=== PATIENT | male | born 1975 | race Caucasian/White ===

== ENCOUNTER 2025-04-17 01:40 | Emergency (ER) | payer SELFPAY ==
[2025-04-17 01:50] VITALS: BP 156/86; PULSE 77; RESP 18; TEMP 36.2; O2SAT 99
--- NOTE | 2025-04-17 01:56 | ED.MALEGU ---
HPI - Male Genitourinary General Chief complaint: Urogenital-Male Stated complaint: concerns of uti Time Seen by Provider: 04/17/25 01:56 Source: patient Mode of arrival: ambulatory Limitations: no limitations History of Present Illness HPI Narrative: Patient noticed green penile discharge few hours prior to arrival to the emergency room. Patient reported frequent urination over the last 24 hours, new sexual partner 1 month ago He denies any fever, chills, nausea, vomiting or history of STD. Patient is telling me that his new girlfriend denied any history of STD or any symptoms of it Related Data Allergies Allergy/AdvReac Type Severity Reaction Status Date / Time No Known Allergies Allergy Verified 04/17/25 01:44 Review of Systems Review of Systems: All systems reviewed & are unremarkable except as noted in HPI and below Exam Narrative: General appearance: Well-developed, well-nourished Skin: Normal color Head: Normocephalic, nontraumatic Eyes: Clear conjunctiva ENT: Oropharynx normal, ears normal, nose normal Neck: Supple, nontender Chest and respiratory: Airway patent, no respiratory distress, no accessory muscle use Heart: Regular rate/rhythm Abdomen: Soft, nontender, no organomegaly, quiet bowel sounds Musculoskeletal: Normal range of motion, nontender back Neurologic: Alert and oriented ?3, HEALTH SERVICES DIRECTOR is normal as tested, no gross motor deficit Course Vital Signs Vital signs: Vital Signs Temperature 36.2 C L 04/17/25 01:50 Pulse Rate 77 04/17/25 01:50 Respiratory Rate 18 04/17/25 01:50 Blood Pressure 156/86 H 04/17/25 01:50 Pulse Oximetry 99 04/17/25 01:50 Oxygen Delivery Room Air 04/17/25 01:50 Temperature 36.2 C L 04/17/25 01:50 Pulse Rate 77 04/17/25 01:50 Respiratory Rate 18 04/17/25 01:50 Blood Pressure 156/86 H 04/17/25 01:50 Pulse Oximetry 99 04/17/25 01:50 Oxygen Delivery Room Air 04/17/25 01:50 MDM MDM Narrative Medical decision making narrative: Differential diagnosis urinary tract infection, and/or STD The STD test is send out Urinalysis showed evidence of infection In the ED patient received have g of Rocephin IM, 1 g of azithromycin p.o. to cover possible GC chlamydia Discharged on Cipro 500 b.i.d. for 10 days for urinary tract infection Differential Diagnosis Differential Diagnosis: As above Lab Data Labs: Lab Results 04/17/25 04/17/25 Range/Units 02:02 02:14 Urine Color Yellow (Yellow) Urine Appearance Clear (Clear) Urine pH 6.0 (5.0-8.0) Ur Specific [place] 1.025 H (1.010-1.020) Urine Protein 1+ H (Negative) Urine Glucose (UA) Negative (Negative) Urine Ketones Trace H (Negative) Ur Blood (Man) Trace-intact H (Negative) Urine Nitrate Negative (Negative) Urine Bilirubin 1+ H (Negative) Urine Urobilinogen 1.0 (0.2-1.0) mg/dL Leukocyte Esterase Rfl 1+ H (Negative) AALIYAH/UL Urine RBC 3-5 H (0-2) /hpf Urine WBC >75 H (0-3) /hpf Ur Squamous Epith Cells None seen (Few) /hpf Urine Bacteria Trace (None) /hpf Urine Mucus Moderate H /lpf C. trachomatis (PCR) Pending N. gonorrhoeae (PCR) Pending Critical Care Time Critical Care Time Critical Care Time: No Discharge Plan Discharge Clinical Impression: Urinary tract infection, Discharge from penis Patient Disposition: Home Condition: Stable Instructions: Antibiotic Form, Sexually Transmitted Diseases (ED), Urinary Tract Infection in Men (ED) Additional Instructions: Return if symptoms are worsening , call your family physician for appointment, take Tylenol as as needed for aches and pain, continue home medications. Patient Language: Albanian Prescriptions: New ciprofloxacin HCl [Cipro] 500 mg tablet 500 mg PO Q12H Qty: 20 0RF Follow-up/Referrals: Jose Shukla MD [Primary Care Provider, Internal Medicine]
[2025-04-17 02:21] LABS: Add Urine Microscopic? YES; Appearance Urine Clear (Clear); Glucose Urine UA Negative (Negative); Leukocyte Esterase Ur 1+ LEU/UL (Negative); Nitrate Urine Negative (Negative); Specific Grav Ur 1.025 (1.010-1.020)
[2025-04-17] MEDS: AZITHROMYCIN 250 MG TABLET 1000 MG PO (02:49)
[2025-04-17] MEDS: cefTRIAXone 500 MG, LIDOCAINE 1% LOCAL INJ 1 ML IM (02:50)
[2025-04-17 03:05] VITALS: BP 133/79; PULSE 85; RESP 18; TEMP 36.6; O2SAT 95
--- NOTE | 2025-04-19 14:48 | PC.NURSE ---
final urine culture reviewed. no growth
== END 2025-04-17 03:05 | disposition home or self-care (01) ==
LOC: CHSED 02:41
PROVIDERS: Emergency Provider Emergency Medicine; PCP Family Medicine
DX: N39.0 Urinary tract infection, site not specified (principal); Z11.3 Encounter for screening for infections with a predominantly sexual mode of transmission
CPT/HCPCS: 81001; 87086; 87491; 87591; 96372; 99283; A9270; J0696; J2003